=== PATIENT | female | born 1985 | race Two or more races ===

== ENCOUNTER 2021-03-07 10:20 | Outpatient (CLI) | payer OTHER | END 2021-03-07 11:58 | disposition home or self-care (01) | LOC: PRENATAL 10:20 | PROVIDERS: ATTEND Obstetrics & Gynecology Maternal & Fetal Medicine | DX: O10.011 Pre-existing essential hypertension complicating pregnancy, first trimester (principal); O09.511 Supervision of elderly primigravida, first trimester; O99.891 Other specified diseases and conditions complicating pregnancy; O36.80X1 Pregnancy with inconclusive fetal viability, fetus 1; Z36.89 Encounter for other specified antenatal screening; Z3A.14 14 weeks gestation of pregnancy ==

== ENCOUNTER 2021-04-30 12:54 | Outpatient (CLI) | payer OTHER | END 2021-04-30 14:20 | disposition home or self-care (01) | LOC: PRENATAL 12:54 | PROVIDERS: ATTEND Obstetrics & Gynecology Maternal & Fetal Medicine | DX: O35.0XX1 Maternal care for (suspected) central nervous system malformation in fetus, fetus 1 (principal); O35.3XX1 Maternal care for (suspected) damage to fetus from viral disease in mother, fetus 1; O98.512 Other viral diseases complicating pregnancy, second trimester; O09.512 Supervision of elderly primigravida, second trimester; O10.012 Pre-existing essential hypertension complicating pregnancy, second trimester; O99.212 Obesity complicating pregnancy, second trimester; Z36.89 Encounter for other specified antenatal screening; Z3A.21 21 weeks gestation of pregnancy ==

== ENCOUNTER 2021-07-02 12:58 | Outpatient (CLI) | payer OTHER | END 2021-07-02 13:46 | disposition home or self-care (01) | LOC: PRENATAL 12:58 | PROVIDERS: ATTEND Obstetrics & Gynecology Maternal & Fetal Medicine | DX: O26.849 Uterine size-date discrepancy, unspecified trimester (principal); O10.019 Pre-existing essential hypertension complicating pregnancy, unspecified trimester; O99.210 Obesity complicating pregnancy, unspecified trimester; O09.519 Supervision of elderly primigravida, unspecified trimester ==

== ENCOUNTER 2021-08-06 13:12 | Outpatient (CLI) | payer OTHER | END 2021-08-06 14:25 | disposition home or self-care (01) | LOC: PRENATAL 13:12 | PROVIDERS: ATTEND Obstetrics & Gynecology Maternal & Fetal Medicine | DX: O26.849 Uterine size-date discrepancy, unspecified trimester (principal); O10.019 Pre-existing essential hypertension complicating pregnancy, unspecified trimester; Z3A.34 34 weeks gestation of pregnancy ==

== ENCOUNTER 2021-08-27 07:22 | Inpatient (IN) | payer OTHER ==
[~2021-08-27] VITALS: Ht 172.7 cm; Wt 143.3 kg
[2021-08-27] MEDS ORDERED: ECOTRIN81 MG PO (07:59)
[2021-08-27] MEDS ORDERED: FOLIC ACID20 MG PO (07:59)
[2021-08-27] MEDS ORDERED: PRENATAL CAPLE1 EAC1 PO (07:59)
[2021-08-27] MEDS ORDERED: TRANDATE300 MG PO (08:00)
== END 2021-08-29 12:24 | disposition home or self-care (01) | DRG 807 ==
LOC: OB/GYN 07:22 → LDR 07:22 → OB/GYN 15:14
PROVIDERS: ADMIT Obstetrics & Gynecology; ATTEND Obstetrics & Gynecology
PROC: 10E0XZZ Delivery of Products of Conception, External Approach (ICD-10-PCS; principal; 2021-08-27)
PROC: 0UQG7ZZ Repair Vagina, Via Natural or Artificial Opening (ICD-10-PCS; 2021-08-27)
PROC: 4A1HXCZ Monitoring of Products of Conception, Cardiac Rate, External Approach (ICD-10-PCS; 2021-08-27)
DX: O71.4 Obstetric high vaginal laceration alone (principal); Z37.0 Single live birth; Z20.822 Contact with and (suspected) exposure to COVID-19; Z3A.37 37 weeks gestation of pregnancy